=== PATIENT | female | born 1980 | race Two or more races ===

== ENCOUNTER → 2018-03-07 | Outpatient (CLI) | payer OTHER ==
[~2018-03-07] MED LIST: AMARYL 4MG; COLACE100 MG; IBUPROFEN 800 MG; LOSARTAN POTAS100 MG; METFORMIN 250 MG; NORFLEX100MG; PRENATAL CAPLE1 EACH PO; SINGULAIR10 MG; SYMBICORT 16010.2 GM IH; VERAPAMIL ER120 MG; ZYRTEC10 M3 PO
== END | disposition home or self-care (01) ==
LOC: SONOGRAMA 11:45
DX: M12.861 Other specific arthropathies, not elsewhere classified, right knee (principal); M17.11 Unilateral primary osteoarthritis, right knee; M54.2 Cervicalgia

== ENCOUNTER → 2020-12-10 | Outpatient (CLI) | payer OTHER | END | disposition home or self-care (01) | LOC: NST 16:09 | PROVIDERS: ATTEND Obstetrics & Gynecology Maternal & Fetal Medicine | DX: Z34.83 Encounter for supervision of other normal pregnancy, third trimester (principal) ==

== ENCOUNTER 2020-12-21 12:50 | Outpatient (CLI) | payer OTHER | END 2020-12-21 13:34 | disposition home or self-care (01) | LOC: NST 12:50 | PROVIDERS: ATTEND Obstetrics & Gynecology | DX: Z34.83 Encounter for supervision of other normal pregnancy, third trimester (principal) ==

== ENCOUNTER 2020-12-21 15:00 | Inpatient (IN) | payer OTHER ==
[~2020-12-21] VITALS: Ht 154.9 cm; Wt 108.9 kg
[2020-12-30] MEDS ORDERED: PRENATAL TABLE1 EAC3 PO (10:01)
[2020-12-30] MEDS ORDERED: ZOLOFT50 MG PO (10:06)
[2020-12-30] MEDS ORDERED: TRANDATE300 MG PO (10:11)
[2020-12-30] MEDS ORDERED: SYMBICORT 80/10.2 GM IH (10:12)
[2020-12-30] MEDS ORDERED: SINGULAIR 10MG10 MG PO (10:13)
[2020-12-30] MEDS ORDERED: METFORMIN HCL1000 MG (14:28)
[2020-12-30] MEDS ORDERED: IBU800 MG (14:29)
[2020-12-30] MEDS ORDERED: GLIMEPIRIDE4 MG (14:29)
== END 2021-01-01 14:21 | disposition home or self-care (01) | DRG 798 ==
LOC: LDR 12-30 06:35 → OB/GYN 12-30 06:35 → LDR 12-30 12:45 → OB/GYN 01-01 14:21
PROVIDERS: ADMIT Obstetrics & Gynecology; ATTEND Obstetrics & Gynecology
PROC: 0UB70ZZ Excision of Bilateral Fallopian Tubes, Open Approach (ICD-10-PCS; 2020-12-30)
PROC: 0HQ9XZZ Repair Perineum Skin, External Approach (ICD-10-PCS; 2020-12-30)
PROC: 10907ZC Drainage of Amniotic Fluid, Therapeutic from Products of Conception, Via Natural or Artificial Opening (ICD-10-PCS; 2020-12-30)
PROC: 3E033VJ Introduction of Other Hormone into Peripheral Vein, Percutaneous Approach (ICD-10-PCS; 2020-12-30)
PROC: 4A1HXFZ Monitoring of Products of Conception, Cardiac Rhythm, External Approach (ICD-10-PCS; 2020-12-30)
PROC: 10E0XZZ Delivery of Products of Conception, External Approach (ICD-10-PCS; principal; 2020-12-30 12:45)
DX: O10.02 Pre-existing essential hypertension complicating childbirth (principal); Z37.0 Single live birth; O24.429 Gestational diabetes mellitus in childbirth, unspecified control; O99.824 Streptococcus B carrier state complicating childbirth; O99.513 Diseases of the respiratory system complicating pregnancy, third trimester; J45.909 Unspecified asthma, uncomplicated; Z30.2 Encounter for sterilization; Z3A.37 37 weeks gestation of pregnancy; Z20.822 Contact with and (suspected) exposure to COVID-19

== ENCOUNTER 2021-09-23 08:29 | Outpatient (CLI) | payer OTHER ==
[~2021-09-23 08:29] MED LIST changes: +GLIMEPIRIDE4 MG; +IBU800 MG; +METFORMIN HCL1000 MG; +PRENATAL TABLE1 EAC3 PO; +SINGULAIR 10MG10 MG PO; +SYMBICORT 80/10.2 GM IH; +TRANDATE300 MG PO; +ZOLOFT50 MG PO
== END 2021-09-23 08:44 | disposition home or self-care (01) ==
LOC: TOM 08:29
PROVIDERS: ATTEND Specialist
DX: K76.0 Fatty (change of) liver, not elsewhere classified (principal); K43.2 Incisional hernia without obstruction or gangrene